=== PATIENT | female | born 1940 | race Caucasian/White ===

== ENCOUNTER 2017-08-15 05:12 | Day surgery (SDC) | payer OTHER ==
[~2017-08-15 05:12] MED LIST: LIPITOR20 MG PO
== END 2017-08-15 10:50 | disposition home or self-care (01) ==
LOC: CIR.AMB 05:12 → EDBD 05:12 → CIR.AMB 07:00
DX: M75.121 Complete rotator cuff tear or rupture of right shoulder, not specified as traumatic (principal); S46.111A Strain of muscle, fascia and tendon of long head of biceps, right arm, initial encounter